=== PATIENT | female | born 1995 | race Caucasian/White ===

== ENCOUNTER 2023-09-12 19:13 | Inpatient (IN) | payer BC, SELFPAY ==
[2023-09-12 19:37] VITALS: BP 128/76; BMI 31.2
[2023-09-12 19:56] LABS: % Basophils 0.3 % (0-2); % Eosinophils 0.8 % (0-6); % Immature Granulocytes 0.7 % (0-0.5); % Neutrophils 78.2 % (42.2-75.2); Absolute Eosinophils 0.1 10^3/uL (0-0.7); Absolute Immature Granulocytes 0.1 10^3/uL (0-0.05); Absolute Lymphocytes 1.6 10^3/uL (1.2-3.4); Absolute Monocytes 0.7 10^3/uL (0.1-0.6); Absolute Neutrophils 8.7 10^3/uL (1.4-6.5); Hemoglobin 10.3 g/dL (12.0-16.0); Mean Corp Hgb Conc. 33.2 g/dL (33.0-37.0); Mean Corpuscular Hgb 27.6 pg (27.0-31.0); Mean Corpuscular Volume 83.1 fL (81.0-99.0); Mean Platelet Volume 11.6 fL (7.4-10.4); Nucleated Red Blood Cells % 0 %; Platelet Count 195 10^3/uL (130-400); Red Blood Cell Count 3.73 10^6/uL (4.20-5.40); Red Cell Dist. Width 13.6 % (11.5-14.5); White Blood Cell Count 11.1 10^3/uL (4.8-10.8)
[2023-09-12] MEDS: CYTOTEC 25 MICROGRAM VAG (20:28)
[2023-09-13] MEDS: CYTOTEC 50 MICROGRAM PO ×2 (00:32→04:29)
[2023-09-13] MEDS: CYTOTEC PO (08:23)
[2023-09-13] MEDS: PITOCIN 30 UNITS/NSS 500 ML IV ×2 (09:05→15:31)
[2023-09-13] MEDS: LR 1000 IV (11:25)
[2023-09-13] MEDS: SUBLIMAZE 100 MCG EPIDURAL (11:57)
[2023-09-13] MEDS: FENTANYL/BUPIVACAINE 100 EPIDURAL (11:57)
[2023-09-13] MEDS: HEMABATE 250 MCG IM (16:53)
[2023-09-13] MEDS: MOTRIN 600 MG PO (20:08)
[2023-09-13] MEDS: TYLENOL 650 MG PO (20:09)
[2023-09-14] MEDS: TYLENOL 650 MG PO ×3 (03:20→14:43)
[2023-09-14] MEDS: MOTRIN 600 MG PO ×4 (03:20→22:45)
[2023-09-14 03:28] LABS: Hematocrit 27.6 % (37.0-47.0); Hemoglobin 9.4 g/dL (12.0-16.0)
[2023-09-14] MEDS: PRENATAL PLUS 1 TABLET PO (07:48)
[2023-09-14] MEDS: FEOSOL 325 MG PO (07:48)
[2023-09-14] MEDS: SENOKOT-S 1 TABLET PO ×2 (08:04→16:44)
[2023-09-14 09:25] LABS: ALT (SGPT) 15 U/L (0-35); AST (SGOT) 34 U/L (14-36); Albumin 3.3 g/dl (3.5-5.0); Alkaline Phosphatase 197 U/L (38-126); Blood Urea Nitrogen 9 mg/dl (7-17); Calcium 9.2 mg/dl (8.4-10.2); Carbon Dioxide 24 mmol/L (22-30); Chloride 107 mmol/L (98-107); Estimated Creatinine Clearance > 125 ml/min; Glucose 94 mg/dl (70-99); Potassium 4.1 mmol/L (3.5-5.1); Sodium 135 mmol/L (135-145); Total Bilirubin 0.4 mg/dl (0.2-1.3); Total Protein 6.1 g/dl (6.3-8.2); eGFR > 60.00
[2023-09-14 09:57] LABS: Platelet Count 176 10^3/uL (130-400)
[2023-09-15] MEDS: FEOSOL 325 MG PO (08:05)
[2023-09-15] MEDS: PRENATAL PLUS PO (08:15)
[2023-09-16 14:47] LABS: Syphilis/T. pallidum Ab Reflex Negative (Negative)
== END 2023-09-15 11:22 | disposition home or self-care (01) | DRG 806 ==
LOC: LDRP 19:13
PROVIDERS: Obstetrics & Gynecology; ADMITTING PHYSICIAN Obstetrics & Gynecology
PROC: 3E0P7VZ Introduction of Hormone into Female Reproductive, Via Natural or Artificial Opening (ICD-10-PCS; 2023-09-12)
PROC: 0UQGXZZ Repair Vagina, External Approach (ICD-10-PCS; 2023-09-13)
PROC: 10907ZC Drainage of Amniotic Fluid, Therapeutic from Products of Conception, Via Natural or Artificial Opening (ICD-10-PCS; 2023-09-13)
PROC: 10E0XZZ Delivery of Products of Conception, External Approach (ICD-10-PCS; 2023-09-13)
PROC: 3E033VJ Introduction of Other Hormone into Peripheral Vein, Percutaneous Approach (ICD-10-PCS; 2023-09-13)
DX: O48.0 Post-term pregnancy (principal); O71.4 Obstetric high vaginal laceration alone; Z37.0 Single live birth; Z3A.40 40 weeks gestation of pregnancy; O99.02 Anemia complicating childbirth; D50.9 Iron deficiency anemia, unspecified; O99.344 Other mental disorders complicating childbirth; F41.9 Anxiety disorder, unspecified
CPT/HCPCS: 36415; 80053; 85014; 85018; 85025; 85049; 86780; 86850; 86900; 86901

== ENCOUNTER → 2024-12-17 11:33 | Outpatient (REF) | payer BC, SELFPAY | LOC: PNTC 11:33 | PROVIDERS: ATTENDING PHYSICIAN Obstetrics & Gynecology | DX: Z36.0 Encounter for antenatal screening for chromosomal anomalies (principal); Z36.82 Encounter for antenatal screening for nuchal translucency | CPT/HCPCS: 36415; 76801; 76813 ==